=== PATIENT | male | born 1965 | race Two or more races ===

== ENCOUNTER 2017-05-25 08:21 | Emergency (ER) | payer OTHER ==
[~2017-05-25] VITALS: Ht 177.8 cm; Wt 136.1 kg
[2017-05-25 08:30] VITALS: BP 153/72
[2017-05-25] MEDS ORDERED: KETOROLAC TROMETH 60MG/2ML VIAL IM ONE (10:00)
== END 2017-05-25 10:22 | disposition home or self-care (01) ==
LOC: ER 08:21
DX: M1A.0610 Idiopathic chronic gout, right knee, without tophus (tophi) (principal); M17.11 Unilateral primary osteoarthritis, right knee; G89.29 Other chronic pain; M25.561 Pain in right knee
CPT/HCPCS: 73562; 96372; 99284; J1885